=== PATIENT | male | born 1960 | race Caucasian/White ===

== ENCOUNTER → 2019-05-02 | Outpatient (CLI) | payer BC ==
[~2019-05-02] MED LIST: ACTOS45 MG PO; ASPIRIN E.C. 8181 MG PO; BYETTA SQ; GLUCOTROL5 MG PO; LISINOPRIL20 MG PO; METFORMIN1000 MG PO; MULTIPLE VITAMI1 CAP PO; SIMVASTATIN20 MG PO
== END ==
LOC: COL.RAD 09:12
DX: N45.1 Epididymitis (principal)